=== PATIENT | male | born 1970 | race Two or more races ===

== ENCOUNTER → 2018-04-07 | Day surgery (SDC) | payer OTHER ==
[~2018-04-07] MED LIST: ABILIFY20 MG PO; ATENOLOL50 MG PO; ATIVAN0.5 MG PO; FENOFIBRATE160 MG PO; FORTAMET500 MG PO; GABAPENTIN100 MG PO; GABAPENTIN300 MG PO; GLIPIZIDE10 MG PO; GLYCOL; IRBESARTAN150 MG PO; LAMICTAL100 M1 PO; LISINOPRIL10 MG; NIZORAL120 ML; OSTERA TABLET1 EACH PO; PRISTIQ ER50 MG PO; PROTONIX40 M1 PO; SECURA PROTECTI50 GM; TRAZODONE HCL50 MG PO; ZOCOR40 MG PO
== END | disposition home or self-care (01) ==
LOC: ADM 04-06 12:45 → CIR.AMB 06:50
DX: S62.632A Displaced fracture of distal phalanx of right middle finger, initial encounter for closed fracture (principal)

== ENCOUNTER 2020-10-11 08:00 | Outpatient (CLI) | payer OTHER | END 2020-10-11 08:30 | disposition home or self-care (01) | LOC: PPH VACUNA 08:00 | DX: Z23 Encounter for immunization (principal) ==

== ENCOUNTER 2024-01-09 11:38 | Outpatient (CLI) | payer OTHER | END 2024-01-09 11:41 | disposition home or self-care (01) | LOC: NUCLEAR 11:38 | PROVIDERS: ATTEND Internal Medicine Sports Medicine | DX: C73 Malignant neoplasm of thyroid gland (principal) | CPT/HCPCS: 79005; A9517 ==

== ENCOUNTER 2024-01-14 12:40 | Outpatient (CLI) | payer OTHER | END 2024-01-14 12:42 | disposition home or self-care (01) | LOC: NUCLEAR 12:40 | PROVIDERS: ATTEND Internal Medicine Sports Medicine | DX: C73 Malignant neoplasm of thyroid gland (principal) | CPT/HCPCS: 78018; A9528 ==

== ENCOUNTER → 2025-04-01 12:33 | Outpatient (CLI) | payer OTHER | END | disposition home or self-care (01) | LOC: NUCLEAR 12:33 | PROVIDERS: ATTEND Internal Medicine Sports Medicine | DX: C73 Malignant neoplasm of thyroid gland (principal) ==